=== PATIENT | female | born 1980 | race Caucasian/White ===

== ENCOUNTER → 2016-08-11 | Outpatient (CLI) | payer MEDICAID | LOC: MMGSC 15:22 | PROVIDERS: ATTEND Family Medicine | DX: E03.9 Hypothyroidism, unspecified (principal) | CPT/HCPCS: 36415; 84439; 84443 ==

== ENCOUNTER → 2016-11-02 | Outpatient (CLI) | payer MEDICAID ==
[2016-11-04 11:00] LABS: Lyme IgG/IgM 0.2 Index; Lyme IgG/IgM Interp NEGATIVE (NEGATIVE)
== END ==
LOC: MMGSC 14:04
PROVIDERS: ATTEND Family Medicine
DX: E03.9 Hypothyroidism, unspecified (principal); A69.20 Lyme disease, unspecified
CPT/HCPCS: 36415; 84439; 84443; 86618

== ENCOUNTER → 2017-01-04 | Outpatient (CLI) | payer MEDICAID | LOC: MMGSC 14:42 | PROVIDERS: ATTEND Family Medicine | DX: E03.9 Hypothyroidism, unspecified (principal) | CPT/HCPCS: 36415; 84439; 84443 ==

== ENCOUNTER → 2017-08-14 | Outpatient (CLI) | payer OTHER ==
--- NOTE | 2017-08-14 15:48 | XR ---
EXAMINATION TYPE: XR shoulder complete LT DATE OF EXAM: 08/14/2017 COMPARISON: NONE HISTORY: Left shoulder strain decreased range of motion TECHNIQUE: Shoulder examined in 3 views FINDINGS: The humeral head articulates with the glenoid. The acromio-clavicular junction is normal. No acute fractures or dislocations are evident. A follow up study can be performed 7-10 days from acute trauma for continued pain. IMPRESSION: 1. Normal Shoulder
--- NOTE | 2017-08-14 15:49 | XR ---
EXAMINATION TYPE: XR hand complete LT DATE OF EXAM: 08/14/2017 COMPARISON: NONE HISTORY: Jammed second digit TECHNIQUE: 3 views left hand FINDINGS: There is prominent soft tissue swelling over the proximal interphalangeal joint space of th e index finger. No acute fractures are evident. Remaining joint spaces appear preserved. Soft tissues is not present elsewhere. IMPRESSION: 1. Soft tissue swelling proximal interphalangeal joint space index finger.
== END | disposition home or self-care (01) ==
LOC: RADXRMAIN 15:21
PROVIDERS: ATTEND Emergency Medicine
DX: S43.402A Unspecified sprain of left shoulder joint, initial encounter (principal); M79.89 Other specified soft tissue disorders

== ENCOUNTER → 2017-08-29 | Outpatient (CLI) | payer OTHER ==
--- NOTE | 2017-08-29 12:35 | XR ---
Left hand HISTORY: Trauma and pain, follow-up sprain 3 views of the left hand correlated prior exam 08/14/2017 No interval change. IMPRESSION: No fracture or dislocation.
== END | disposition home or self-care (01) ==
LOC: RADXRMAIN 11:54
PROVIDERS: ATTEND Emergency Medicine
DX: S63.611D Unspecified sprain of left index finger, subsequent encounter (principal)

== ENCOUNTER → 2017-09-14 | Outpatient (CLI) | payer OTHER ==
--- NOTE | 2017-09-14 16:48 | MR ---
EXAMINATION TYPE: MR shoulder LT wo con DATE OF EXAM: 09/14/2017 COMPARISON: Plain film 08/14/2017 HISTORY: Left Shoulder Pain with Limited ROM X 1 Month TECHNIQUE: Multiplanar, multisequence imaging of the left shoulder is performed without contrast. FINDINGS: Rotator Cuff: Intact. Rotator cuff muscles appear intact. No fatty infiltration is evident. No tendon or muscle retraction is evident. No subacromial bursa or subdeltoid bursal fluid is evident. Acromioclavicular Joint: Preserved. Significant hypertrophy is not identified. Glenohumeral Joint: Joint space is preserved. Labrum: There appears to be some thinning of the glenoid labrum. Obvious glenoid labral tear is not i dentified. Lack of contrast does limit evaluation for glenoid labral tears and subcutaneous surface i ncomplete rotator cuff tears. Biceps Tendon: The long head of biceps is in normal location within bicipital groove. Bone marrow signal: No focal abnormal marrow signal is appreciated. Other: No additional significant abnormality is appreciated. IMPRESSION: 1. Some mild degenerative change of the glenoid labrum may be present. 2. No suspicious rotator cuff tear is identified. 3. No suspicious signal changes to suggest shoulder strain.
== END | disposition home or self-care (01) ==
LOC: RADMRIMAIN 15:33
PROVIDERS: ATTEND Emergency Medicine
DX: R20.9 Unspecified disturbances of skin sensation (principal)

== ENCOUNTER → 2021-10-01 | Outpatient (CLI) | payer OTHER ==
--- NOTE | 2021-10-04 09:36 | MM ---
Reason for Exam: Screening (asymptomatic). Patient History: Menarche at age 11. Patient has no children. Paternal grandmother had breast cancer, age 60. Last menstrual period: 10/01/2021 Risk Values: Enedina 5 year model risk: 0.7%. NCI Lifetime model risk: 10.9%. Prior Study Comparison: No prior studies available for comparison. Tissue Density: The breast tissue is extremely dense which could obscure a lesion on mammography. Findings: Analyzed By CAD. There is no suspicious group of microcalcifications or new suspicious mass in either breast. Overall Assessment: Negative, BI-RAD 1 Management: Screening Mammogram of both breasts in 1 year. A clinical breast exam by your physician is recommended on an annual basis and results should be correlated with mammographic findings. Electronically signed and approved by: Jean Pierre Pierson D.O.
== END | disposition home or self-care (01) ==
LOC: RADMAMWWP 14:47
PROVIDERS: ATTEND Family Medicine
DX: Z12.31 Encounter for screening mammogram for malignant neoplasm of breast (principal); Z80.3 Family history of malignant neoplasm of breast
CPT/HCPCS: 77067

== ENCOUNTER → 2021-10-15 | Outpatient (CLI) | payer OTHER ==
--- NOTE | 2021-10-15 12:02 | XR ---
EXAMINATION TYPE: XR chest 2V DATE OF EXAM: 10/15/2021 COMPARISON: None INDICATION: Kidney donor TECHNIQUE: Frontal and lateral views of the chest are obtained. FINDINGS: The heart size is normal. The pulmonary vasculature is normal. The lungs are clear. IMPRESSION: 1. No acute pulmonary process.
== END | disposition home or self-care (01) ==
LOC: RADXRMAIN 11:43
PROVIDERS: ATTEND Surgery
DX: Z00.5 Encounter for examination of potential donor of organ and tissue (principal); Z13.6 Encounter for screening for cardiovascular disorders
CPT/HCPCS: 71046; 93005

== ENCOUNTER → 2021-10-18 | Outpatient (CLI) | payer OTHER ==
[2021-10-18 08:24] LABS: INR 0.9 (<1.2); Partial Thromboplastin Time 26.9 sec (22.0-30.0); Prothrombin Time 10.1 sec (9.0-12.0)
[2021-10-18 08:29] LABS: ALT 17 U/L (4-34); AST 23 U/L (14-36); African American GFR (CKD) >90 (>60 ml/min/1.73 sqM); Albumin 4.4 g/dL (3.5-5.0); Albumin/Globulin Ratio 1.4; Alkaline Phosphatase 58 U/L (38-126); Anion Gap 10 mmol/L; Bilirubin,Unconjugated 0.3 mg/dL (0.0-1.1); Blood Urea Nitrogen 8 mg/dL (7-17); Calcium 8.8 mg/dL (8.4-10.2); Carbon Dioxide 25 mmol/L (22-30); Chloride 103 mmol/L (98-107); GGT 15 U/L (12-43); Globulin 3.2 g/dL; Glucose 91 mg/dL (74-99); LDH 420 U/L (313-618); Non-African American GFR(CKD) >90 (>60 ml/min/1.73 sqM); Potassium 4.2 mmol/L (3.5-5.1); Sodium 138 mmol/L (137-145); Total Bilirubin 0.4 mg/dL (0.2-1.3); Total Protein 7.6 g/dL (6.3-8.2)
[2021-10-18 08:36] LABS: HCG,Quantitative Serum <2.4 mIU/mL
[2021-10-18 09:36] LABS: Creatinine,Urine Random 263.8 mg/dL
[2021-10-18 10:58] LABS: Basophils # (A) 0.05 X 10*3/uL (0.00-0.10); Basophils % (A) 0.5 %; Eosinophils # (A) 0.17 X 10*3/uL (0.04-0.35); Eosinophils % (A) 1.7 %; HCT 41.2 % (37.2-46.3); HGB 13.3 g/dL (12.0-15.0); Immature Grans, Automated 0.3 %; Lymphocytes # (A) 2.34 X 10*3/uL (0.90-5.00); Lymphocytes % (A) 22.7 %; MCH 29.8 pg (27.0-32.0); MCHC 32.3 g/dL (32.0-37.0); MCV 92.2 fL (80.0-97.0); Mean Platelet Volume 12.3 fL (9.5-12.2); Monocytes # (A) 0.57 X 10*3/uL (0.20-1.00); Monocytes % (A) 5.5 %; NRBC Per 100 WBC 0 /100 WBCS (0.0-0.0); Neutrophils # (A) 7.13 X 10*3/uL (1.80-7.70); Neutrophils % (A) 69.3 %; Platelet Count 310 X 10*3/uL (140-440); RBC 4.47 X 10*6/uL (4.10-5.20); RDW 12.8 % (11.5-14.5); WBC 10.29 X 10*3/uL (4.50-10.00)
[2021-10-18 11:17] LABS: Hepatitis B Surface AB- Quant 19.7 mIU/mL; Hepatitis B Surface Antibody Reactive (Nonreactive)
[2021-10-18 11:41] LABS: Appearance,Urine Cloudy (Clear); Bilirubin,Urine Negative (Negative); Blood,Urine Negative (Negative); Color,Urine Yellow (Yellow); Ketones,Urine Trace mg/dL (Negative); Nitrite,Urine Negative (Negative); Specific Gravity,Urine 1.023 (1.001-1.030)
[2021-10-18 12:36] LABS: Hepatitis B Core IgM Nonreactive (Nonreactive); Hepatitis B Surface Antigen Nonreactive (Nonreactive); Hepatitis C IgG Antibody Nonreactive (Nonreactive)
[2021-10-18 12:53] LABS: Bacteria,Urine 2+ /HPF (None Seen)
[2021-10-18 15:37] LABS: EBV-EA (IgG) <0.2 AI; EBV-EBNA(IgG) >8.0 AI; EBV-VCA (IgG) >8.0 AI; EBV-VCA (IgM) 0.7 AI; HIV 2 AB Non-Reactive (Non-Reactive); HIV AB P24 Non-Reactive (Non-Reactive); HIV P24 AG Non-Reactive (Non-Reactive)
[2021-10-18 17:21] LABS: Chol/HDL Ratio 3.65 Ratio; LDL Cholesterol,Calculated 145.4 mg/dL (0.0-131.0); VLDL Calculation 15.12 mg/dL (5.00-40.00)
[2021-10-18 23:13] LABS: Microalbumin Creatinine Ratio <30 mg/g Creat (0-30)
[2021-10-19 03:56] LABS: Toxoplasma Antibody (IgG) <3.0 IU/mL (<7.2)
[2021-10-19 17:22] LABS: Total Volume 24 Hour,Urine 1000 mL
== END | disposition home or self-care (01) ==
LOC: LABWHC1 07:05
PROVIDERS: ATTEND Surgery
DX: Z00.5 Encounter for examination of potential donor of organ and tissue (principal)
CPT/HCPCS: 36415; 80053; 80061; 81001; 81050; 82043; 82248; 82570; 82575; 82977; 83036; 83615; 84156; 84702; 85025; 85610; 85730; 86480; 86644; 86663; 86664; 86665; 86704; 86705; 86706; 86777; 86780; 86788; 86789; 86803; 87086; 87340; 87390; 87522

== ENCOUNTER → 2021-12-03 | Outpatient (CLI) | payer OTHER | END | disposition home or self-care (01) | LOC: LABWHC1 10:30 | PROVIDERS: ATTEND Surgery | DX: Z00.5 Encounter for examination of potential donor of organ and tissue (principal); Z13.6 Encounter for screening for cardiovascular disorders | CPT/HCPCS: 36415; 84100; 86788; 86789; 93005 ==

== ENCOUNTER → 2022-02-02 | Outpatient (CLI) | payer OTHER | END | disposition home or self-care (01) | LOC: LABWHC1 07:26 | PROVIDERS: ATTEND Surgery | DX: Z00.5 Encounter for examination of potential donor of organ and tissue (principal) ==

== ENCOUNTER → 2022-12-23 | Outpatient (CLI) | payer OTHER ==
--- NOTE | 2022-12-26 08:17 | MM ---
Reason for Exam: Screening (asymptomatic). Last mammogram was performed 1 year(s) and 3 month(s) ago. Patient History: Menarche at age 11. Patient has no children. Paternal grandmother had breast cancer, age 60. Risk Values: Enedina 5 year model risk: 0.8%. NCI Lifetime model risk: 10.8%. Prior Study Comparison: 10/01/2021 Bilateral MG screening mammo w CAD, [facility]. Tissue Density: The breast tissue is heterogeneously dense. This may lower the sensitivity of mammography. Findings: Analyzed By CAD. There is no suspicious group of microcalcifications or new suspicious mass. Overall Assessment: Negative, BI-RAD 1 Management: Screening Mammogram of both breasts in [address] [facility] will attempt to contact patient to return for supplemental views and ultrasound if indicated. Patient should continue monthly self-breast exams. A clinical breast exam by your physician is recommended on an annual basis. This exam should not preclude additional follow-up of suspicious palpable abnormalities. Note on Enedina scores and lifetime risk: 1. A Enedina score greater than 3% is considered moderate risk. If this is the case, consider specialist referral to assess eligibility for a risk reducing agent. 2. If overall lifetime risk for the development of breast cancer is 20% or higher, the patient may qualify for future screening with alternating mammogram and breast MRI. Electronically signed and approved by: Jimenez Mcmahon DO
== END | disposition home or self-care (01) ==
LOC: RADMAMWWP 14:53
PROVIDERS: ATTEND Family Medicine
DX: Z12.31 Encounter for screening mammogram for malignant neoplasm of breast (principal); Z80.3 Family history of malignant neoplasm of breast
CPT/HCPCS: 77067

== ENCOUNTER → 2023-07-12 | Outpatient (CLI) | payer OTHER ==
[2023-07-12 10:42] LABS: HCT 44.3 % (37.2-46.3); HGB 14.4 g/dL (12.0-15.0); MCH 29.3 pg (27.0-32.0); MCHC 32.5 g/dL (32.0-37.0); MCV 90.2 FL (80.0-97.0); Mean Platelet Volume 11.1 FL (9.5-12.2); NRBC Per 100 WBC 0 X 10*3/uL (0.00-0.01); Platelet Count 341 X 10*3/uL (140-440); RBC 4.91 X 10*6/uL (4.10-5.20); RDW 12.8 % (11.5-14.5); WBC 8.02 X 10*3/uL (4.50-10.00)
[2023-07-12 10:52] LABS: ALT 24 U/L (8-44); AST 26 U/L (13-35); Albumin 4.6 g/dL (3.8-4.9); Albumin/Globulin Ratio 1.59 Ratio (1.60-3.17); Alkaline Phosphatase 54 U/L (41-126); BUN/Creat Ratio 13.25 Ratio (12.00-20.00); Blood Urea Nitrogen 10.6 mg/dL (9.0-27.0); Calcium 9.3 mg/dL (8.7-10.3); Carbon Dioxide 22.7 mmol/L (21.6-31.8); Chloride 105 mmol/L (96-109); Globulin 2.9 g/dL (1.6-3.3); Glucose 83 mg/dL (70-110); Potassium 4.4 mmol/L (3.5-5.5); Sodium 139 mmol/L (135-145); Total Bilirubin 0.4 mg/dL (0.3-1.2); Total Protein 7.5 g/dL (6.2-8.2)
[2023-07-12 11:15] LABS: Appearance,Urine Clear (Clear); Bilirubin,Urine Negative (Negative); Blood,Urine Negative (Negative); Color,Urine Yellow (Yellow); Ketones,Urine Negative (Negative); Nitrite,Urine Negative (Negative); Specific Gravity,Urine 1.016 (1.001-1.030); Urobilinogen,Urine 0.2 E.U./DL
[2023-07-12 11:22] LABS: Microalbumin Creatinine Ratio <7 mg/g Cr (0-30)
[2023-07-13 10:27] LABS: Basophils # (A) 0.06 X 10*3/uL (0.00-0.10); Basophils % (A) 0.8 %; Eosinophils # (A) 0.07 X 10*3/uL (0.04-0.35); Eosinophils % (A) 0.9 %; HCT 43.5 % (37.2-46.3); HGB 14.4 g/dL (12.0-15.0); Lymphocytes # (A) 2.13 X 10*3/uL (0.90-5.00); Lymphocytes % (A) 26.9 %; MCH 30.2 pg (27.0-32.0); MCHC 33.1 g/dL (32.0-37.0); MCV 91.2 FL (80.0-97.0); Mean Platelet Volume 11.5 FL (9.5-12.2); Monocytes # (A) 0.57 X 10*3/uL (0.20-1.00); Monocytes % (A) 7.2 %; NRBC Per 100 WBC 0 X 10*3/uL (0.00-0.01); Neutrophils # (A) 5.07 X 10*3/uL (1.80-7.70); Neutrophils % (A) 64.1 %; Platelet Count 342 X 10*3/uL (140-440); RBC 4.77 X 10*6/uL (4.10-5.20); RDW 12.7 % (11.5-14.5); WBC 7.91 X 10*3/uL (4.50-10.00)
== END | disposition home or self-care (01) ==
LOC: LABWHC1 07:39
PROVIDERS: ATTEND Surgery
DX: Z00.5 Encounter for examination of potential donor of organ and tissue (principal)
CPT/HCPCS: 36415; 80053; 81003; 82043; 82570; 84100; 85025; 85027; 87086

== ENCOUNTER → 2024-09-11 | Outpatient (CLI) | payer SELFPAY ==
[2024-09-11 15:59] LABS: Bilirubin,Urine Negative (Negative); Blood,Urine Negative (Negative); Color,Urine Yellow (Yellow); Ketones,Urine Negative (Negative); Nitrite,Urine Positive (Negative); PH, Urine 5.5; Specific Gravity,Urine 1.017 (1.001-1.030); Urobilinogen,Urine 0.2 E.U./DL
[2024-09-11 16:19] LABS: Bacteria,Urine 3+ (None Seen)
== END | disposition home or self-care (01) ==
LOC: LABWHC1 09:35
PROVIDERS: ATTEND Surgery
DX: Z52.4 Kidney donor (principal)
CPT/HCPCS: 36415; 81001; 82565